=== PATIENT | female | born 1945 | race Two or more races ===

== ENCOUNTER 2021-08-31 08:45 | Inpatient (IN) | payer OTHER ==
[~2021-08-31] VITALS: Ht 157.5 cm; Wt 68.9 kg
[2021-08-31] MEDS ORDERED: SIMVASTATIN PO (11:59)
[2021-08-31] MEDS ORDERED: SYNTHROID112 MCG (12:00)
[2021-08-31] MEDS ORDERED: COZAAR25 MG (12:00)
[2021-09-05] MEDS ORDERED: SIMVASTATIN40 MG (08:12)
[2021-09-05] MEDS ORDERED: LATANOPROST2.5 ML (08:13)
[2021-09-05] MEDS ORDERED: TRAMADOL HCL50 MG (08:13)
[2021-09-05] MEDS ORDERED: ATORVASTATIN CA20 MG (08:13)
[2021-09-05] MEDS ORDERED: VITAMIN D350 MC3 (08:13)
[2021-09-07] MEDS ORDERED: PERCOCET 5-3251 EACH PO (12:38)
[2021-09-07] MEDS ORDERED: CIPRO500 MG PO (12:38)
[2021-09-07] MEDS ORDERED: ELIQUIS2.5 MG PO (12:38)
== END 2021-09-07 17:47 | disposition home or self-care (01) | DRG 470 ==
LOC: O/R 09-05 05:45 → SURG 09-05 05:45 → SURH 09-05 08:45 → SURG 09-05 10:42 → SURH 09-05 15:15 → SURG 09-07 17:47
PROVIDERS: ADMIT Orthopaedic Surgery; ATTEND Orthopaedic Surgery
PROC: 0SRC0J9 Replacement of Right Knee Joint with Synthetic Substitute, Cemented, Open Approach (ICD-10-PCS; principal; 2021-09-05 15:15)
DX: M17.11 Unilateral primary osteoarthritis, right knee (principal); M80.00XA Age-related osteoporosis with current pathological fracture, unspecified site, initial encounter for fracture; D62 Acute posthemorrhagic anemia; I10 Essential (primary) hypertension; Z20.822 Contact with and (suspected) exposure to COVID-19

== ENCOUNTER 2024-12-15 08:15 | Inpatient (IN) | payer OTHER ==
[~2024-12-15] VITALS: Ht 154.9 cm; Wt 63.5 kg
[~2024-12-15 08:15] MED LIST: ATORVASTATIN CA20 MG; CIPRO500 MG PO; COZAAR25 MG; ELIQUIS2.5 MG PO; LATANOPROST2.5 ML; PERCOCET 5-3251 EACH PO; SIMVASTATIN PO; SIMVASTATIN40 MG; SYNTHROID112 MCG; TRAMADOL HCL50 MG; VITAMIN D350 MC3
[2024-12-15 09:50] LABS: HEMATOCRIT 40.5 % (36.0-45.00); HEMOGLOBIN 13.2 g/dL (12.0-15.00); MEAN CELL VOLUME 86.5 fL (80.00-100.00); MEAN CORPUSCULAR HEMOGLOBIN 28.2 pg (27.00-32.0); MEAN CORPUSCULAR HGB CONC 32.7 g/dl (32.0-36.0); PLATELET COUNT 278 K/uL (150-450); RED BLOOD COUNT 4.68 M/uL (4.00-6.00); RED CELL DISTRIBUTION WIDTH 14.3 % (11.5-14.5)
[2024-12-15 09:51] LABS: URINE APPEARANCE Clear; URINE BILIRRUBIN Negative (NEGATIVE); URINE BLOOD Negative; URINE COLOR Yellow; URINE GLUCOSE Negative (NEGATIVE); URINE KETONE Negative (NEGATIVE); URINE LEUKOCYTE Negative; URINE NITRATE Negative; URINE PROTEIN Negative (NEGATIVE); URINE UROBILINOGEN 0.2 E.U./dl
[2024-12-15] MEDS ORDERED: NEURONTIN300 MG (09:52)
[2024-12-15] MEDS ORDERED: NORFLEX (09:52)
[2024-12-15 09:56] VITALS: BP 140/85
[2024-12-15 09:56] LABS: URINE EPITHELIAL CELLS 2.8 uL (0.0-38.8); URINE RBC 13.6 uL (0.0-20.8)
[2024-12-15 10:02] LABS: URINE WBC 0.9 uL (0.0-23.2)
[2024-12-15 10:11] LABS: INR 1.05; PROTHROMBIN TIME 11.4 SECONDS (9.0-11.5)
[2024-12-15 10:57] LABS: ALBUMIN 3.9 gm/dL (3.4-5.0); BILIRUBIN TOTAL 0.67 mg/dL (0.3-1.2); CALCIUM 9.7 mg/dL (8.5-10.1); CREATININE SERUM 0.5 mg/dL (0.55-1.02); GFR 119.02; GLOBULINA 3.2 G/DL (2.4-3.5); POTASSIUM 4.11 mEq/L (3.5-5.1); RH POSITIVE; TOTAL PROTEIN 7.1 gm/dL (6.4-8.2)
[2024-12-22] MEDS ORDERED: VANCOMYCIN HCL 1,000 MG in 0.9 % SODIUM CHLORIDE 250 ML IV ONE (08:45)
[2024-12-22] MEDS ORDERED: MORPHINE SULFATE 4 MG/ML VIAL IV ONE ×2 (08:45→10:55)
[2024-12-22] MEDS ORDERED: POVIDONE-IODINE 118 ML BOTT TOP ONE (08:45)
[2024-12-22] MEDS ORDERED: KETOROLAC TROMETHAMINE 60 MG VIAL IM ONE (08:45)
[2024-12-22] MEDS ORDERED: BUPIVACAINE HCL 30 ML VIAL IJ ONE (08:45)
[2024-12-22] MEDS ORDERED: LIDOCAINE HCL 1%/EPINEPHRINE 20ML VIAL IJ ONE (08:45)
[2024-12-22] MEDS ORDERED: TRANEXAMIC ACID 100MG/1ML (1000MG) AMPUL IV ONE ×2 (08:45)
[2024-12-22] MEDS ORDERED: VANCOMYCIN HCL 1,000 MG VIAL IR ONE (08:45)
[2024-12-22] MEDS ORDERED: SODIUM CHLORIDE 0.45 % 1,000 ML IV SCH (09:30)
[2024-12-22] MEDS ORDERED: ONDANSETRON HCL 2 MG/ML VIAL IV PRN (09:30)
[2024-12-22] MEDS ORDERED: MORPHINE SULFATE 4 MG/ML CARTRIDGE IV PRN (09:30)
[2024-12-22] MEDS ORDERED: OxyCODONE HCL 5 MG TABLET (ROXICODONE) PO PRN (09:30)
[2024-12-22] MEDS ORDERED: ACETAMINOPHEN 500 MG GEL..CAP PO SCH (12:00)
[2024-12-22 12:45] VITALS: BP 169/71; O2SAT 97
[2024-12-22 16:00] VITALS: BP 152/71; O2SAT 98
[2024-12-22] MEDS ORDERED: GABAPENTIN 300 MG CAPSULE PO SCH (17:00)
[2024-12-22] MEDS ORDERED: VANCOMYCIN HCL 1,000 MG in 0.9 % SODIUM CHLORIDE 250 ML IV SCH (21:00)
[2024-12-23 00:17] VITALS: BP 131/81; O2SAT 100
[2024-12-23 07:15] LABS: HEMATOCRIT 38.6 % (36.0-45.00); HEMOGLOBIN 12.7 g/dL (12.0-15.00); MEAN CORPUSCULAR HEMOGLOBIN 28.3 pg (27.00-32.0); MEAN CORPUSCULAR HGB CONC 32.9 g/dl (32.0-36.0); PLATELET COUNT 253 K/uL (150-450); RED BLOOD COUNT 4.48 M/uL (4.00-6.00); RED CELL DISTRIBUTION WIDTH 14.2 % (11.5-14.5)
[2024-12-23] MEDS ORDERED: CIPRO500 MG PO (07:31)
[2024-12-23] MEDS ORDERED: PERCOCET 5-3251 EACH PO (07:31)
[2024-12-23] MEDS ORDERED: ELIQUIS2.5 MG PO (07:31)
[2024-12-23 08:00] VITALS: BP 162/80; O2SAT 95
[2024-12-23] MEDS ORDERED: SENNOSIDES 1 TAB TABLET PO SCH (09:00)
[2024-12-23] MEDS ORDERED: APIXABAN 2.5 MG TABLET PO SCH (09:00)
[2024-12-23 16:00] VITALS: BP 165/84; O2SAT 97
[2024-12-23] MEDS ORDERED: Cyanocobalamin/Mecobalamin 1 TAB.SL SL NR (18:00)
[2024-12-23] MEDS ORDERED: VITAMIN B COMPLEX 1 EACH PO NR (18:00)
[2024-12-23] MEDS ORDERED: VANCOMYCIN HCL 1,000 MG VIAL ONE (19:01)
[2024-12-23] MEDS ORDERED: VANCOMYCIN HCL 1,000 MG VIAL IV SCH (21:00)
[2024-12-24 00:54] VITALS: BP 166/79; O2SAT 98
[2024-12-24] MEDS ORDERED: VANCOMYCIN HCL 1,000 MG VIAL ONE ×2 (06:12→14:02)
[2024-12-24 08:00] VITALS: BP 149/65; O2SAT 96
[2024-12-24] MEDS ORDERED: VITAMIN B COMPLEX 1 EACH PO SCH (09:00)
[2024-12-24] MEDS ORDERED: IRON FUM,PS/FOLIC ACID/VITC/B3 1 CAP CAPSULE PO SCH (09:00)
[2024-12-24 16:00] VITALS: BP 135/71; O2SAT 95
[2024-12-24] MEDS ORDERED: Cyanocobalamin/Mecobalamin 1 TAB.SL SL SCH (17:00)
== END 2024-12-24 18:13 | DRG 470 ==
LOC: O/R 12-22 05:20 → SURH 12-22 08:15
PROVIDERS: ADMIT Orthopaedic Surgery; ATTEND Orthopaedic Surgery
PROC: 0MNP0ZZ Release Left Knee Bursa and Ligament, Open Approach (ICD-10-PCS; 2024-12-22)
PROC: 0QUF0JZ Supplement Left Patella with Synthetic Substitute, Open Approach (ICD-10-PCS; 2024-12-22)
PROC: 0SRD0JZ Replacement of Left Knee Joint with Synthetic Substitute, Open Approach (ICD-10-PCS; principal; 2024-12-22 16:00)
DX: M17.0 Bilateral primary osteoarthritis of knee (principal); D62 Acute posthemorrhagic anemia; Z96.653 Presence of artificial knee joint, bilateral; M22.12 Recurrent subluxation of patella, left knee